=== PATIENT | female | born 1985 | race Caucasian/White ===

== ENCOUNTER → 2020-05-06 | Outpatient (CLI) | payer OTHER ==
--- NOTE | 2020-05-07 10:53 | REP ---
INDICATION: EXCESSIVE MENSES COMPARISON: None. TECHNIQUE: transvaginal examination for better evaluation of the endometrium and adnexa with color Doppler evaluation of the ovaries. FINDINGS: Bladder is collapsed. Normal anteverted uterus measures 9.6 x 4.9 x 5.8 cm. The endometrial complex measures 14.7 mm thickness. No discrete uterine or endometrial abnormalities are appreciated. Bilateral ovaries are normal in appearance and vascularity without evidence for torsion. Right ovary measures 2.1 x 1.8 x 2.5 cm and includes 1.7 cm hypoechoic lesion likely representing hemorrhagic cyst/dominant follicle.; R I = 0.58. Left ovary measures 2.9 x 1.5 x 2.1 cm; R I = 0.66. Small amount of free fluid in the pelvis is nonspecific and likely physiologic. IMPRESSION: 1.7 cm right ovarian hypoechoic lesion likely hemorrhagic cyst/follicle. Otherwise normal pelvic ultrasound. <Electronically signed by Emile Hull > 05/07/20 [id number]
== END ==
LOC: M RAD 13:44
PROVIDERS: ATTEND Student in an Organized Health Care Education/Training Program
DX: D39.11 Neoplasm of uncertain behavior of right ovary (principal); N92.1 Excessive and frequent menstruation with irregular cycle

== ENCOUNTER 2022-01-13 09:26 | Day surgery (SDC) | payer OTHER ==
[~2022-01-13] VITALS: Ht 160 cm; Wt 61.0 kg
[~2022-01-13 09:26] MED LIST: BIOT5CAP PO; MONT10TA97 PO; PROAAER10 INH; RIZA10TA58 PO; TOPI50TA9 PO; VITMTA PO; ZYRT10TA12 PO
[2022-01-13 10:05] LABS: HEMATOCRIT 42.6 % (36.0-47.0); HEMOGLOBIN 13.6 g/dl (12.0-15.5); MEAN CORPUSCULAR HEMOGLOBIN 30.5 pg (27.0-33.0); MEAN CORPUSCULAR HGB CONC 31.9 g/dl (32.0-36.5); MEAN CORPUSCULAR VOLUME 95.5 fl (80.0-96.0); PLATELET COUNT, AUTOMATED 369 10^3/uL (150-450); RED BLOOD COUNT 4.46 10^6/uL (4.00-5.40); WHITE BLOOD COUNT 8.4 10^3/uL (4.0-10.0)
[2022-01-13 10:32] LABS: HCG, SERUM QUALITATIVE NEGATIVE (NEGATIVE)
[2022-01-13 10:40] LABS: BLOOD UREA NITROGEN 13 MG/DL (7-18); CALCIUM LEVEL 9.6 MG/DL (8.5-10.1); CARBON DIOXIDE LEVEL 24 MEQ/L (21-32); CHLORIDE LEVEL 106 MEQ/L (98-107); CREATININE FOR GFR 1.06 MG/DL (0.55-1.30); GLOMERULAR FILTRATION RATE > 60.0 (>60); GLUCOSE, FASTING 92 MG/DL (70-100); SODIUM LEVEL 136 MEQ/L (136-145)
[2022-01-13] MEDS ORDERED: propofoL 200 MG/20 ML VIAL As Ordered ONE (11:47)
[2022-01-13] MEDS ORDERED: dexameTHASONE 4 MG/ML 1ML VIAL (J1100 PER 1MG) As Ordered ONE (11:48)
[2022-01-13] MEDS ORDERED: LIDOCAINE 2% 100MG/5ML SDV (FOR ANES.) As Ordered ONE (11:48)
[2022-01-13] MEDS ORDERED: ONDANSETRON 4MG 2ML VIAL As Ordered ONE (11:48)
[2022-01-13] MEDS ORDERED: ACETAMINOPHEN 1000MG 100ML IV BTL (OFIRMEV) (J0131 PER 10MG) As Ordered ONE ×2 (11:48→13:30)
[2022-01-13] MEDS ORDERED: MIDAZOLAM INJ 2MG/2ML VIAL (J2250 PER 1MG) As Ordered ONE (12:06)
[2022-01-13] MEDS ORDERED: fentaNYL 100 MCG/2 ML INJECTION As Ordered ONE (12:06)
[2022-01-13] MEDS ORDERED: BUPIVACAINE HCL 0.25% 30ML VIAL As Ordered ONE (12:16)
[2022-01-13] MEDS ORDERED: LEVONORGESTREL 52MG (MIRENA) IUD As Ordered ONE (12:22)
[2022-01-13] MEDS ORDERED: fentaNYL 100 MCG/2 ML INJECTION IV PRN (13:15)
[2022-01-13] MEDS ORDERED: METOCLOPRAMIDE INJ 10MG/2ML VIAL (J2765 PER 1) IV PRN (13:15)
[2022-01-13] MEDS ORDERED: LR 1,000 ML IV SCH (13:15)
[2022-01-13] MEDS ORDERED: ONDANSETRON 4MG 2ML VIAL IV PRN (13:15)
[2022-01-13] MEDS ORDERED: oxyCODONE 5MG TAB PO PRN (13:15)
[2022-01-13] MEDS ORDERED: oxyCODONE 5MG TAB PO ONE (13:45)
[2022-01-13] MEDS ORDERED: KETOROLAC 30 MG/ML 1ML VIAL IV ONE (14:00)
[2022-01-13 14:07] VITALS: BP 115/59
== END 2022-01-13 14:46 | disposition home or self-care (01) ==
LOC: M SDC 09:26
PROVIDERS: ATTEND Obstetrics & Gynecology
DX: N93.9 Abnormal uterine and vaginal bleeding, unspecified (principal); N84.0 Polyp of corpus uteri; J45.909 Unspecified asthma, uncomplicated; Z79.899 Other long term (current) drug therapy
CPT/HCPCS: 36415; 58300; 58558; 80048; 84703; 85027; 86850; 86900; 86901; 88305; J0131; J1100; J1885; J2250; J2405; J3010; J7298

== ENCOUNTER → 2022-01-16 | Outpatient (REF) | LOC: M LABSMTC 09:55 | PROVIDERS: ATTEND Family Medicine | DX: Z20.828 Contact with and (suspected) exposure to other viral communicable diseases (principal); Z11.59 Encounter for screening for other viral diseases ==